=== PATIENT | male | born 1950 | race Caucasian/White ===

== ENCOUNTER → 2019-08-12 11:16 | Outpatient (CLI) | payer MEDICARE, BC, SELFPAY ==
[2019-08-12 13:35] LABS: Prostate Specific Antigen 5.89 ng/mL (0.10-4.00)
== END ==
PROVIDERS: PCP Internal Medicine Geriatric Medicine; Referring Provider Radiology Radiation Oncology; Visit Provider Radiology Radiation Oncology
DX: C61 Malignant neoplasm of prostate (principal)
CPT/HCPCS: 36415; 84153